=== PATIENT | male | born 1975 | race Caucasian/White ===

== ENCOUNTER 2024-10-29 09:47 | Emergency (ER) | payer BC, OTHER ==
[~2024-10-29] VITALS: Ht 175.3 cm; Wt 117.9 kg
[2024-10-29] MEDS: SODIUM CHLORIDE 0.9% 1000ML 1,000 ML IV STA ×2 (10:19→11:14)
[2024-10-29] MEDS: ONDANSETRON HCL INJ 2MG/ML 2ML 2 MG/ML VIAL IV STA (10:19)
[2024-10-29] MEDS: ACETAMINOPHEN 1000 MG/100 ML IV STA (10:19)
[2024-10-29 10:20] LABS: BASOPHILS % 0.2 % (0.0-1.0); HEMATOCRIT 40.6 % (38.2-49.6); LYMPHOCYTES # (AUTO) 0.5 (1.0-3.2); LYMPHOCYTES % 8.7 % (18.0-39.1); MEAN CORPUSCULAR HEMOGLOBIN 27.6 pg (28-32); MEAN CORPUSCULAR HGB CONC 34.5 g/dL (31-35); MEAN CORPUSCULAR VOLUME 79.9 fL (81-99); MONOCYTES # (AUTO) 0.3 (0.2-0.8); MONOCYTES % 5.7 % (4.4-11.3); NEUTROPHILS # (AUTO) 4.8 (2.1-6.9); NEUTROPHILS % 84.5 % (38.7-80.0); PLATELET COUNT 159 x10e3/uL (140-360); RED BLOOD COUNT 5.08 x10e6/uL (4.3-5.7); RED CELL DISTRIBUTION WIDTH 12.9 % (11.7-14.4); WHITE BLOOD COUNT 5.66 x10e3/uL (4.8-10.8)
[2024-10-29 10:46] LABS: ALBUMIN 3.3 g/dL (3.5-5.0); ALBUMIN/GLOBULIN RATIO 0.9 (0.8-2.0); ANION GAP 15.8 mmol/L (8-16); BILIRUBIN,TOTAL 0.6 mg/dL (0.2-1.2); CALCIUM 8.6 mg/dL (8.4-10.2); CREATININE, SERUM 1.23 mg/dL (0.72-1.25); MAGNESIUM 2.1 MG/DL (1.3-2.1)
[2024-10-29 11:04] LABS: POTASSIUM 2.8 mmol/L (3.5-5.1)
[2024-10-29] MEDS: KETOROLAC TROMETHAMINE 30 MG/ML VIAL IV STA (11:14)
[2024-10-29] MEDS: KCL 20 MEQ PACKET/ ORAL SOLN PO ONE (11:14)
[2024-10-29 11:26] VITALS: TEMP 99.7
[2024-10-29 12:30] VITALS: PULSE 88; RESP 18
[2024-10-29] MEDS ORDERED: ONDANSETRON ODT4 MG PO (12:50)
[2024-10-29 12:53] VITALS: BP 116/66; PULSE 88; RESP 15; TEMP 98.9; O2SAT 95
== END 2024-10-29 13:05 | disposition home or self-care (01) ==
LOC: ER 09:54
DX: R50.9 Fever, unspecified (principal); J11.1 Influenza due to unidentified influenza virus with other respiratory manifestations; R11.2 Nausea with vomiting, unspecified; R53.81 Other malaise; I10 Essential (primary) hypertension; F32.A Depression, unspecified
CPT/HCPCS: 36415; 80053; 83735; 84484; 85025; 93005; 99284; J0131; J1885; J2405; J2470; J7030

== ENCOUNTER 2024-10-30 22:18 | Inpatient (IN) | payer OTHER ==
[~2024-10-30] VITALS: Ht 175.3 cm; Wt 117.9 kg
[~2024-10-30 22:18] MED LIST: ONDANSETRON ODT4 MG PO
[2024-10-30 22:22] VITALS: TEMP 103.2
[2024-10-30 23:04] LABS: BASOPHILS % 0.4 % (0.0-1.0); HEMATOCRIT 35.4 % (38.2-49.6); HEMOGLOBIN 12.5 g/dL (14.0-18.0); LYMPHOCYTES # (AUTO) 0.7 (1.0-3.2); LYMPHOCYTES % 14.2 % (18.0-39.1); MEAN CORPUSCULAR HGB CONC 35.3 g/dL (31-35); MEAN CORPUSCULAR VOLUME 79.2 fL (81-99); MONOCYTES # (AUTO) 0.2 (0.2-0.8); MONOCYTES % 3.8 % (4.4-11.3); NEUTROPHILS # (AUTO) 3.8 (2.1-6.9); NEUTROPHILS % 80.5 % (38.7-80.0); PLATELET COUNT 133 x10e3/uL (140-360); RED BLOOD COUNT 4.47 x10e6/uL (4.3-5.7); RED CELL DISTRIBUTION WIDTH 13.1 % (11.7-14.4); WHITE BLOOD COUNT 4.72 x10e3/uL (4.8-10.8)
[2024-10-30 23:15] LABS: ALBUMIN 2.8 g/dL (3.5-5.0); ALBUMIN/GLOBULIN RATIO 0.9 (0.8-2.0); ANION GAP 14.4 mmol/L (8-16); BILIRUBIN,TOTAL 0.8 mg/dL (0.2-1.2); CALCIUM 8.1 mg/dL (8.4-10.2); CREATININE, SERUM 1.16 mg/dL (0.72-1.25)
[2024-10-30] MEDS: IBUPROFEN 400 MG TAB PO ONE (23:19)
[2024-10-30 23:25] LABS: POTASSIUM 2.4 mmol/L (3.5-5.1)
[2024-10-30] MEDS ORDERED: SODIUM CHLORIDE FLUSH 10 ML SYR INJ PRN (23:30)
[2024-10-31] VITALS (11 sets, daily range): BP systolic 127–152; BP diastolic 62–84; PULSE 58–109; RESP 18–20; TEMP 98–103.3; O2SAT 95–98
[2024-10-31] MEDS: SODIUM CHLORIDE 0.9% 1000ML 1,000 ML IV ONE (00:16)
[2024-10-31] MEDS: POTASSIUM CHLORIDE 20MEQ/100ML 200 ML IV ONE (00:17)
[2024-10-31] MEDS: KCL 20 MEQ PACKET/ ORAL SOLN NG STA (00:18)
[2024-10-31] MEDS ORDERED: SIMETHICONE 80 MG CHEW PO PRN (00:45)
[2024-10-31] MEDS ORDERED: HYDRALAZINE HCL 20 MG/ML VIAL IV PRN (00:45)
[2024-10-31] MEDS ORDERED: DOCUSATE SODIUM 100 MG CAP PO PRN (00:45)
[2024-10-31] MEDS ORDERED: DEXTROSE 50% SYRINGE 50 ML IV PRN (00:45)
[2024-10-31] MEDS ORDERED: ALBUTEROL/IPRATROPIUM 3 ML NEB NEB PRN (00:45)
[2024-10-31] MEDS ORDERED: BENZONATATE 100 MG CAP PO PRN (00:45)
[2024-10-31 03:04] LABS: CLARITY,URINE SL CLOUDY (CLEAR); COLOR,URINE YELLOW (YELLOW); LEUKOCYTE ESTERASE ,URINE NEGATIVE (NEGATIVE); PH,URINE 6 (5 - 7)
[2024-10-31 03:05] LABS: BILIRUBIN,URINE 1+ (NEGATIVE); GLUCOSE, URINE NEGATIVE (NEGATIVE); KETONES,URINE TRACE (NEGATIVE); NITRITE,URINE NEGATIVE (NEGATIVE); PROTEIN,URINE DIPSTICK 2+ (NEGATIVE); URINE UROBILINOGEN 2 mg/dL (0.2 - 1)
[2024-10-31 03:16] LABS: EPITHELIAL CELLS,URINE FEW /LPF; MUCUS,URINE FEW; RBC,URINE 0-5 /HPF (0-5)
[2024-10-31 03:17] LABS: BACTERIA,URINE MANY /HPF
[2024-10-31 03:19] LABS: CORONAVIRUS COVID-19 AG NEGATIVE (NEGATIVE); INFLUENZA A AG NEGATIVE (NEGATIVE); INFLUENZA B AG NEGATIVE (NEGATIVE)
[2024-10-31] MEDS: ONDANSETRON HCL INJ 2MG/ML 2ML 2 MG/ML VIAL IV PRN (04:45)
[2024-10-31 06:10] LABS: BASOPHILS % 0.4 % (0.0-1.0); HEMOGLOBIN 12.6 g/dL (14.0-18.0); LYMPHOCYTES # (AUTO) 0.6 (1.0-3.2); LYMPHOCYTES % 11.5 % (18.0-39.1); MEAN CORPUSCULAR HEMOGLOBIN 27.5 pg (28-32); MEAN CORPUSCULAR HGB CONC 34.1 g/dL (31-35); MEAN CORPUSCULAR VOLUME 80.6 fL (81-99); MONOCYTES # (AUTO) 0.2 (0.2-0.8); MONOCYTES % 3.9 % (4.4-11.3); NEUTROPHILS # (AUTO) 4.3 (2.1-6.9); NEUTROPHILS % 83.2 % (38.7-80.0); PLATELET COUNT 125 x10e3/uL (140-360); RED BLOOD COUNT 4.59 x10e6/uL (4.3-5.7); RED CELL DISTRIBUTION WIDTH 13.2 % (11.7-14.4); WHITE BLOOD COUNT 5.13 x10e3/uL (4.8-10.8)
[2024-10-31 06:33] LABS: ALBUMIN 2.8 g/dL (3.5-5.0); ALBUMIN/GLOBULIN RATIO 0.8 (0.8-2.0); ANION GAP 17.1 mmol/L (8-16); BILIRUBIN,TOTAL 1.1 mg/dL (0.2-1.2); CALCIUM 8.1 mg/dL (8.4-10.2); CREATININE, SERUM 1.22 mg/dL (0.72-1.25); TOTAL PROTEIN 6.1 g/dL (6.5-8.1)
[2024-10-31 06:35] LABS: POTASSIUM 3.1 mmol/L (3.5-5.1)
[2024-10-31] MEDS: PANTOPRAZOLE SOD 40 MG TABEC PO SCH (08:25)
[2024-10-31] MEDS: OSELTAMIVIR PHOSPHATE 75 MG CAP PO ONE (08:33)
[2024-10-31 11:43] LABS: BAND NEUTROPHILS % (MANUAL) 49 %; BASOPHILS % (MANUAL) 1 % (0-1.5); LYMPHOCYTES % (MANUAL) 5 % (19-48); MONOCYTES % (MANUAL) 1 % (3.4-9.0); NEUTROPHILS % (MANUAL) 44 % (40-74)
[2024-10-31 11:44] LABS: PLATELET ESTIMATE SLIGHTLY DECREASED; PLATELET MORPHOLOGY COMMENT NORMAL; RBC MORPHOLOGY COMMENT NORMAL
[2024-10-31] MEDS: ACETAMINOPHEN 325 MG TAB PO PRN (12:00)
[2024-10-31] MEDS ORDERED: IOPAMIDOL 370 MG/ML 100 ML INFUS..BTL INJ ONE (14:29)
[2024-10-31] MEDS: KETOROLAC TROMETHAMINE 30 MG/ML VIAL IV PRN (15:15)
[2024-10-31] MEDS: Doxycycline IV 100 MG in SODIUM CHLORIDE 0.9% 100 ML IV SCH (15:16)
[2024-10-31] MEDS: SODIUM CHLORIDE 0.9% 1000ML 1,000 ML IV SCH (15:16)
[2024-10-31] MEDS: POTASSIUM CHLORIDE 20 MEQ TAB CR PO STA (15:16)
[2024-10-31] MEDS ORDERED: LEXAPRO20 MG PO (15:29)
[2024-10-31] MEDS ORDERED: BUPROPION HCL75 MG PO (15:29)
[2024-10-31] MEDS ORDERED: AMLODIPINE-VAL1 EACH PO (15:29)
[2024-10-31] MEDS ORDERED: HYDROCHLOROTHIA25 MG PO (15:34)
[2024-10-31] MEDS: ENOXAPARIN SOD INJ 40 MG/0.4 ML SYR SC SCH (17:13)
[2024-11-01] VITALS (9 sets, daily range): BP systolic 95–149; BP diastolic 62–79; PULSE 59–107; RESP 18–23; TEMP 98.3–101.3; O2SAT 95–98
[2024-11-01 05:55] LABS: BASOPHILS % 0.3 % (0.0-1.0); HEMATOCRIT 33.6 % (38.2-49.6); HEMOGLOBIN 11.6 g/dL (14.0-18.0); LYMPHOCYTES # (AUTO) 1.2 (1.0-3.2); LYMPHOCYTES % 18.2 % (18.0-39.1); MEAN CORPUSCULAR HEMOGLOBIN 27.6 pg (28-32); MEAN CORPUSCULAR HGB CONC 34.5 g/dL (31-35); MONOCYTES # (AUTO) 0.2 (0.2-0.8); MONOCYTES % 2.8 % (4.4-11.3); NEUTROPHILS # (AUTO) 5.1 (2.1-6.9); NEUTROPHILS % 78.1 % (38.7-80.0); PLATELET COUNT 111 x10e3/uL (140-360); RED CELL DISTRIBUTION WIDTH 13.2 % (11.7-14.4)
[2024-11-01 06:30] LABS: ALBUMIN 2.5 g/dL (3.5-5.0); ALBUMIN/GLOBULIN RATIO 0.9 (0.8-2.0); BILIRUBIN,TOTAL 0.9 mg/dL (0.2-1.2); CALCIUM 7.7 mg/dL (8.4-10.2); CREATININE, SERUM 0.94 mg/dL (0.72-1.25); HIV 1&2 AB SCREEN NON-REACTIVE (NONREACTIVE); TOTAL PROTEIN 5.4 g/dL (6.5-8.1)
[2024-11-01 06:31] LABS: HIV- 1 P24 AG SCREEN NON-REACTIVE (NONREACTIVE)
[2024-11-01] MEDS: ESCITALOPRAM OXALATE 10 MG TAB PO SCH (09:36)
[2024-11-01] MEDS: POTASSIUM CHLORIDE 20 MEQ TAB CR PO PRN (09:37)
[2024-11-01] MEDS: BUPROPION HCL 75 MG TAB PO SCH (09:47)
[2024-11-01 10:51] LABS: BAND NEUTROPHILS % (MANUAL) 2 %; LYMPHOCYTES % (MANUAL) 11 % (19-48); MONOCYTES % (MANUAL) 4 % (3.4-9.0); NEUTROPHILS % (MANUAL) 81 % (40-74); PLATELET ESTIMATE SLIGHTLY DECREASED; PLATELET MORPHOLOGY COMMENT NORMAL; RBC MORPHOLOGY COMMENT NORMAL; REACTIVE LYMPHOCYTES 2
[2024-11-01] MEDS: MELATONIN 5 MG TABLET PO PRN (21:39)
[2024-11-01] MEDS: IBUPROFEN 600 MG TAB PO PRN (21:53)
[2024-11-01 23:22] LABS: % IRON SATURATION 11 % (15-50); IRON 25 ug/dL (65-175); TOTAL IRON BINDING CAPACITY 230 ug/dL (261-478); TRANSFERRIN 164 mg/dL (174-364)
[2024-11-02] VITALS (9 sets, daily range): BP systolic 108–127; BP diastolic 78–91; PULSE 89–102; RESP 18–20; TEMP 98.3–100.3; O2SAT 94–99
[2024-11-02] MEDS: DIPHENHYDRAMINE HCL 25 MG CAP PO PRN (04:39)
[2024-11-02 05:31] LABS: BASOPHILS # (AUTO) 0.1 (0.0-0.1); BASOPHILS % 0.5 % (0.0-1.0); HEMATOCRIT 35.8 % (38.2-49.6); HEMOGLOBIN 12.1 g/dL (14.0-18.0); LYMPHOCYTES # (AUTO) 1.6 (1.0-3.2); LYMPHOCYTES % 17.9 % (18.0-39.1); MEAN CORPUSCULAR HEMOGLOBIN 28.1 pg (28-32); MEAN CORPUSCULAR HGB CONC 33.8 g/dL (31-35); MEAN CORPUSCULAR VOLUME 83.3 fL (81-99); MONOCYTES # (AUTO) 0.4 (0.2-0.8); MONOCYTES % 4.7 % (4.4-11.3); NEUTROPHILS # (AUTO) 6.9 (2.1-6.9); NEUTROPHILS % 75.7 % (38.7-80.0); PLATELET COUNT 102 x10e3/uL (140-360); RED CELL DISTRIBUTION WIDTH 13.7 % (11.7-14.4); WHITE BLOOD COUNT 9.11 x10e3/uL (4.8-10.8)
[2024-11-02 05:59] LABS: ANION GAP 14.2 mmol/L (8-16); CALCIUM 7.6 mg/dL (8.4-10.2); CREATININE, SERUM 0.89 mg/dL (0.72-1.25)
[2024-11-02 06:06] LABS: POTASSIUM 3.2 mmol/L (3.5-5.1)
[2024-11-02] MEDS: ESCITALOPRAM OXALATE 10 MG TAB PO SCH (10:10)
[2024-11-02] MEDS: POTASSIUM CHLORIDE 20 MEQ TAB CR PO ONE (16:38)
[2024-11-03] VITALS (11 sets, daily range): BP systolic 123–144; BP diastolic 80–90; PULSE 81–99; RESP 18–20; TEMP 98–99.9; O2SAT 94–98
[2024-11-03 05:23] LABS: BASOPHILS % 0.4 % (0.0-1.0); EOSINOPHILS % 0.2 % (0.0-6.0); HEMATOCRIT 32.6 % (38.2-49.6); HEMOGLOBIN 11.1 g/dL (14.0-18.0); LYMPHOCYTES # (AUTO) 2.4 (1.0-3.2); LYMPHOCYTES % 23.2 % (18.0-39.1); MEAN CORPUSCULAR HEMOGLOBIN 27.5 pg (28-32); MEAN CORPUSCULAR VOLUME 80.9 fL (81-99); MONOCYTES # (AUTO) 0.5 (0.2-0.8); MONOCYTES % 4.6 % (4.4-11.3); NEUTROPHILS # (AUTO) 7.4 (2.1-6.9); NEUTROPHILS % 70.5 % (38.7-80.0); PLATELET COUNT 140 x10e3/uL (140-360); RED BLOOD COUNT 4.03 x10e6/uL (4.3-5.7); RED CELL DISTRIBUTION WIDTH 13.6 % (11.7-14.4); WHITE BLOOD COUNT 10.44 x10e3/uL (4.8-10.8)
[2024-11-03 05:44] LABS: ALBUMIN 2.3 g/dL (3.5-5.0); ALBUMIN/GLOBULIN RATIO 0.8 (0.8-2.0); BILIRUBIN,TOTAL 0.7 mg/dL (0.2-1.2); CALCIUM 7.5 mg/dL (8.4-10.2); CREATININE, SERUM 0.8 mg/dL (0.72-1.25); TOTAL PROTEIN 5.1 g/dL (6.5-8.1)
[2024-11-03 06:59] LABS: HEPATITIS A ANTIBODY IGM (P) Negative; HEPATITIS B CORE IGM (P) Negative; HEPATITIS B SURFACE AG (P) Negative
[2024-11-03 07:00] LABS: HEPATITIS C ANTIBODY Non Reactive
[2024-11-03 07:49] LABS: LYMPHOCYTES % (MANUAL) 13 % (19-48); MONOCYTES % (MANUAL) 2 % (3.4-9.0); NEUTROPHILS % (MANUAL) 82 % (40-74); PLATELET ESTIMATE ADEQUATE; PLATELET MORPHOLOGY COMMENT NORMAL; RBC MORPHOLOGY COMMENT NORMAL; REACTIVE LYMPHOCYTES 3
[2024-11-03] MEDS: IRON SUCROSE 100 MG in SODIUM CHLORIDE 0.9% 100 ML IV SCH (08:18)
[2024-11-03 09:12] LABS: COMPLEMENT C3 121 mg/dL (82-167); COMPLEMENT C4 37 mg/dL (12-38); RHEUMATOID FACTOR 11.4 IU/mL (<14.0)
[2024-11-03 09:57] LABS: ANTI DNA DS ANTIBODY 1 IU/mL (0-9); ANTI-CENTROMERE B <0.2 AI (0.0-0.9)
[2024-11-03] MEDS: POTASSIUM CHLORIDE 20 MEQ TAB CR PO STA (22:33)
[2024-11-04] VITALS (7 sets, daily range): BP systolic 129–137; BP diastolic 82–90; PULSE 80–91; RESP 18–22; TEMP 98.6–98.8; O2SAT 91–98
[2024-11-04 05:39] LABS: BASOPHILS % 0.4 % (0.0-1.0); EOSINOPHILS # (AUTO) 0.1 (0.0-0.4); EOSINOPHILS % 0.8 % (0.0-6.0); HEMATOCRIT 32.3 % (38.2-49.6); HEMOGLOBIN 10.8 g/dL (14.0-18.0); LYMPHOCYTES # (AUTO) 2.7 (1.0-3.2); LYMPHOCYTES % 25.7 % (18.0-39.1); MEAN CORPUSCULAR HEMOGLOBIN 27.5 pg (28-32); MEAN CORPUSCULAR HGB CONC 33.4 g/dL (31-35); MEAN CORPUSCULAR VOLUME 82.2 fL (81-99); MONOCYTES # (AUTO) 0.5 (0.2-0.8); NEUTROPHILS # (AUTO) 6.9 (2.1-6.9); NEUTROPHILS % 66.5 % (38.7-80.0); PLATELET COUNT 182 x10e3/uL (140-360); RED BLOOD COUNT 3.93 x10e6/uL (4.3-5.7); WHITE BLOOD COUNT 10.31 x10e3/uL (4.8-10.8)
[2024-11-04 05:54] LABS: ALBUMIN 2.2 g/dL (3.5-5.0); ALBUMIN/GLOBULIN RATIO 0.8 (0.8-2.0); ANION GAP 13.3 mmol/L (8-16); BILIRUBIN,TOTAL 0.5 mg/dL (0.2-1.2); CALCIUM 7.6 mg/dL (8.4-10.2); CREATININE, SERUM 0.82 mg/dL (0.72-1.25); TOTAL PROTEIN 5.1 g/dL (6.5-8.1)
[2024-11-04 05:55] LABS: POTASSIUM 3.3 mmol/L (3.5-5.1)
[2024-11-04 10:16] LABS: MYCOPLASMA PNEUMO IGG 139 U/mL (0-99); MYCOPLASMA PNEUMO IGM <770 U/mL (0-769)
[2024-11-04 11:06] LABS: EOSINOPHILS % (MANUAL) 1 % (0-7); LYMPHOCYTES % (MANUAL) 15 % (19-48); MONOCYTES % (MANUAL) 4 % (3.4-9.0); NEUTROPHILS % (MANUAL) 80 % (40-74); PLATELET ESTIMATE ADEQUATE; PLATELET MORPHOLOGY COMMENT NORMAL; RBC MORPHOLOGY COMMENT NORMAL
[2024-11-04 14:02] LABS: CHLAMYDIA TRACHOMATIS IGM <0.8 index (0.0-0.7); CHLAMYDOPHILA PSITTACI IGM <1:10 (Neg:<1:10)
[2024-11-05 07:11] LABS: CMV IGG ANTIBODY <0.60 U/mL (0.00-0.59)
[2024-11-08 16:26] LABS: TOXOPLASMA IGG ANTIBODY 4.2
[2024-11-08 16:27] LABS: TOXOPLASMA IGM ANTIBODY <3.0
== END 2024-11-04 18:19 | disposition home or self-care (01) | DRG 864 ==
LOC: ER 22:21 → ERHOLD 23:30 → MED/SURG 10-31 02:34
PROVIDERS: ADMIT Internal Medicine; ATTEND Internal Medicine
DX: R50.9 Fever, unspecified (principal); M62.82 Rhabdomyolysis; E87.1 Hypo-osmolality and hyponatremia; I10 Essential (primary) hypertension; K76.0 Fatty (change of) liver, not elsewhere classified; D50.9 Iron deficiency anemia, unspecified; F41.9 Anxiety disorder, unspecified; F32.A Depression, unspecified; E87.6 Hypokalemia; R74.01 Elevation of levels of liver transaminase levels; Z11.52 Encounter for screening for COVID-19; E66.01 Morbid (severe) obesity due to excess calories; Z68.38 Body mass index [BMI] 38.0-38.9, adult; Z86.73 Personal history of transient ischemic attack (TIA), and cerebral infarction without residual deficits; Z82.49 Family history of ischemic heart disease and other diseases of the circulatory system
CPT/HCPCS: 36415; 71045; 71260; 74177; 80048; 80053; 81001; 82550; 82607; 82728; 82746; 83540; 83735; 84466; 85025; 85045; 86039; 86140; 86160; 86225; 86235; 86431; 86618; 86631; 86644; 86665; 86738; 86777; 86778; 87040; 87086; 87390; 87449; 94799; 99252; 99284; G0433; G0435; J0696; J1650; J1756; J1885; J2405; J2470; J3480; J7030; J7050; Q9967